=== PATIENT | female | born 1980 | race Hispanic/Latino ===

== ENCOUNTER 2017-08-01 20:09 | Inpatient (IN) | payer MEDICAID ==
[~2017-08-01] VITALS: Ht 162.6 cm; Wt 59.4 kg
[2017-08-01] MEDS: LACTATED RINGERS 1000ML 1,000 ML IV PRN (21:00)
[2017-08-01 21:20] LABS: BILIRUBIN,URINE Negative (NEGATIVE); COLOR,URINE Yellow (YELLOW); GLUCOSE, URINE (UA) Negative (NEGATIVE); KETONES,URINE Negative (NEGATIVE); LEUKOCYTE ESTERASE ,URINE Trace (NEGATIVE); NITRATE,URINE Negative (NEGATIVE); OCCULT BLOOD,URINE Negative (NEGATIVE); PROTEIN,URINE 300 (NEGATIVE)
[2017-08-01 21:27] LABS: AMPHET/METH SCREEN,URINE NEGATIVE (NEGATIVE); BARBITURATE SCREEN, URINE NEGATIVE (NEGATIVE); BENZODIAZEPINES SCREEN,URINE NEGATIVE (NEGATIVE); CANNABINOID SCREEN,URINE NEGATIVE (NEGATIVE); COCAINE SCREEN,URINE NEGATIVE (NEGATIVE); OPIATE SCREEN,URINE POSITIVE (NEGATIVE); PHENCYCLIDINE SCREEN,URINE NEGATIVE (NEGATIVE)
[2017-08-01 21:30] LABS: APPEARANCE,URINE SLIGHTLY CLOUDY (CLEAR)
[2017-08-01 21:35] LABS: BACTERIA,URINE Few /HPF (None Seen); RBC,URINE 0-1 /HPF (0-1)
[2017-08-01 21:37] LABS: HYALINE CASTS, URINE 0-1 /LPF (0-1 /LPF); MUCUS,URINE Few LPF (None Seen); SQUAMOUS EPITHELIAL CELL,UR Few /HPF (0-2)
[2017-08-01 22:06] LABS: HEMATOCRIT 33.1 % (36-48); MEAN CORPUSCULAR HEMOGLOBIN 34.3 pg (27.0-33.0); MEAN CORPUSCULAR HGB CONC 35.9 g/dL (32.0-36.0); MEAN CORPUSCULAR VOLUME 95.4 fL (79-99); PLATELET COUNT (AUTO) 146 K/uL (130-400); RED BLOOD CELL COUNT(AUTO) 3.47 MIL/uL (4.00-5.50); RED CELL DISTRIBUTION WIDTH 13.6 % (11.0-15.5); WHITE BLOOD COUNT (AUTO) 8.7 K/uL (4.8-10.8)
[2017-08-01 22:21] LABS: POTASSIUM 3.9 mmol/L (3.5-5.1)
[2017-08-01 22:22] LABS: INR 0.84 (0.85-1.15); PARTIAL THROMBOPLASTIN TIME 26.5 SEC (26.3-35.5); PROTHROMBIN TIME 8.8 SEC (9.6-11.6)
[2017-08-01 22:25] LABS: ALBUMIN 2.5 g/dL (3.5-5.0); BILIRUBIN,TOTAL 0.2 mg/dL (0.2-1.0); TOTAL PROTEIN, SERUM 6.7 g/dL (6.0-8.3)
[2017-08-01] MEDS ORDERED: ACETAMINOPHEN 325 MG TAB PO ONE (23:00)
[2017-08-01] MEDS: DEXAMETHASONE SOD PHOSPHATE 4 MG/ML 1ML VIAL IM SCH (23:33)
[2017-08-02] MEDS: LACTATED RINGERS 1000ML 1,000 ML IV PRN (00:57)
[2017-08-02] MEDS ORDERED: MEPERIDINE-PF 50 MG/ML SYG IM ONE ×2 (01:45→22:00)
[2017-08-02] MEDS: PROMETHAZINE HCL 25 MG/ML 1ML AMPULE IM SCH (02:05)
[2017-08-02] MEDS: DEXAMETHASONE SOD PHOSPHATE 4 MG/ML 1ML VIAL IM SCH ×3 (06:21→17:43)
[2017-08-02] MEDS ORDERED: CALCIUM GLUCONATE 1 GM/10 ML VIAL IV PRN (11:15)
[2017-08-02] MEDS ORDERED: MAGNESIUM 4GM PREMIX 100ML 100 ML IV SCH (11:15)
[2017-08-02] MEDS ORDERED: PROMETHAZINE HCL 25 MG/ML 1ML AMPULE IM PRN (11:30)
[2017-08-02] MEDS: AMPICILLIN 2GM+NS 100ML 100 ML IV SCH ×2 (11:40→17:43)
[2017-08-02] MEDS: MEPERIDINE-PF 50 MG/ML SYG IM PRN (11:47)
[2017-08-02] MEDS: MAGNESIUM SULFATE 1,000 ML IV PRN (11:51)
[2017-08-02 21:01] LABS: COLLECTION PERIOD,URINE 24 HR; TOTAL VOLUME 24HRS,URINE 950 mL
[2017-08-02 21:19] LABS: TPROTEIN TIMED,URINE 94 mg/dL; TPROTEIN U,24HR CALC 893 mg/24HR (0-165)
[2017-08-02] MEDS ORDERED: PROMETHAZINE HCL 25 MG/ML 1ML AMPULE IM ONE (22:00)
[2017-08-03] MEDS: AMPICILLIN 2GM+NS 100ML 100 ML IV SCH ×2 (00:16→06:18)
[2017-08-03] MEDS: LACTATED RINGERS 1000ML 1,000 ML IV PRN (02:12)
[2017-08-03] MEDS: MAGNESIUM SULFATE 1,000 ML IV PRN ×2 (02:13→16:20)
[2017-08-03 07:29] LABS: HEPATITIS Bs ANTIGEN SCREEN P Negative (Negative)
[2017-08-03] MEDS ORDERED: CALDOLOR 800MG+NS 250ML 250 ML IV ONE (07:34)
[2017-08-03] MEDS ORDERED: CEFAZOLIN SODIUM 1 GM VIAL ONE (07:35)
[2017-08-03] MEDS ORDERED: OXYTOCIN 10 USP UNITS/ML ONE ×2 (07:35→15:53)
[2017-08-03] MEDS ORDERED: FENTANYL CITRATE PF 50 MCG/1 ML 2ML VIAL ONE (14:50)
[2017-08-03] MEDS ORDERED: DURAMORPH PF1 MG/ML 10ML AMP IV ONE (14:57)
[2017-08-03] MEDS ORDERED: LACTATED RINGERS 1000ML 1,000 ML IV SCH (15:56)
[2017-08-03] MEDS ORDERED: OXYTOCIN 10 USP UNITS/ML IV PRN (16:00)
[2017-08-03] MEDS ORDERED: CALCIUM GLUCONATE 1 GM/10 ML VIAL IVP PRN (16:00)
[2017-08-03] MEDS ORDERED: DiphenhydrAMINE HCL 50 MG/ML VIAL ONE (16:10)
[2017-08-03] MEDS ORDERED: EPHEDRINE SULFATE 50 MG/ML AMPULE ONE (18:14)
[2017-08-03] MEDS ORDERED: MEPERIDINE-PF 25 MG/ML SYG ONE (18:14)
[2017-08-03] MEDS: LACTATED RINGERS 1000ML IV SCH ×2 (19:58→20:00)
[2017-08-03] MEDS ORDERED: MORPHINE SULFATE 2 MG/ML 1ML SYG ONE (20:55)
[2017-08-03] MEDS ORDERED: EPHEDRINE SULFATE 50 MG/ML AMPULE IVP ONE (21:15)
[2017-08-03] MEDS ORDERED: DiphenhydrAMINE HCL 50 MG/ML VIAL IVP PRN (21:30)
[2017-08-03] MEDS ORDERED: PROMETHAZINE HCL 25 MG/ML 1ML AMPULE IM PRN (21:30)
[2017-08-03] MEDS ORDERED: ONDANSETRON HCL 4 MG/2 ML VIAL IVP PRN (21:30)
[2017-08-03] MEDS ORDERED: ONDANSETRON HCL MDV 20ML 2 MG/ML VIAL IVP PRN (21:30)
[2017-08-03] MEDS ORDERED: MORPHINE SULFATE 2 MG/ML 1ML SYG IVP PRN (21:30)
[2017-08-03] MEDS ORDERED: NALOXONE HCL 0.4 MG/1 ML ML IVP PRN (21:30)
[2017-08-03] MEDS ORDERED: LACTATED RINGERS 1000ML IV SCH (21:30)
[2017-08-03] MEDS ORDERED: METOCLOPRAMIDE 10 MG/2 ML VIAL IVP PRN (21:30)
[2017-08-03] MEDS ORDERED: EPHEDRINE SULFATE 50 MG/ML AMPULE IVP PRN (21:30)
[2017-08-03] MEDS ORDERED: ONDANSETRON HCL 4 MG/2 ML 8 MG in SODIUM CHLORIDE 0.9% 50 ML IVP NR (21:30)
[2017-08-03] MEDS ORDERED: PHARMACY COMMUNICATION MISC SCH (21:30)
[2017-08-03] MEDS ORDERED: HYDROCODONE/ACETAMINOPHEN 5/325 MG TAB PO PRN (21:30)
[2017-08-03] MEDS ORDERED: MORPHINE SULFATE 2 MG/ML 1ML SYG IVP ONE (21:45)
[2017-08-03 21:53] LABS: HEMATOCRIT 20.6 % (36-48)
[2017-08-03] MEDS ORDERED: EPHEDRINE SULFATE 50 MG/ML AMPULE IM ONE (22:00)
[2017-08-03] MEDS: CALDOLOR 800MG+NS 250ML 250 ML IV SCH (23:32)
[2017-08-04] VITALS (25 sets, daily range): BP systolic 121–160; BP diastolic 87–109
[2017-08-04] MEDS ORDERED: LACTATED RINGERS 1000ML 1,000 ML IV ONE (00:58)
[2017-08-04] MEDS ORDERED: OXYTOCIN 10 USP UNITS/ML ONE (00:58)
[2017-08-04] MEDS ORDERED: OXYTOCIN-LR 20 UNITS/1000 ML 1,000 ML IV PRN (01:11)
[2017-08-04] MEDS: HYDROCODONE/ACETAMINOPHEN 5/325 MG TAB PO PRN (05:07)
[2017-08-04 05:37] LABS: BASOPHILS % (AUTO) 0.2 % (0.0-5.0); EOSINOPHILS % (AUTO) 0.1 % (0.0-8.0); HEMATOCRIT 23.9 % (36-48); MEAN CORPUSCULAR HEMOGLOBIN 32.3 pg (27.0-33.0); MEAN CORPUSCULAR HGB CONC 35.7 g/dL (32.0-36.0); MEAN CORPUSCULAR VOLUME 90.6 fL (79-99); MONOCYTES % (AUTO) 4.7 % (3.0-13.0); PLATELET COUNT (AUTO) 96 K/uL (130-400); RED BLOOD CELL COUNT(AUTO) 2.63 MIL/uL (4.00-5.50); RED CELL DISTRIBUTION WIDTH 15.4 % (11.0-15.5); WHITE BLOOD COUNT (AUTO) 9.4 K/uL (4.8-10.8)
[2017-08-04 05:48] LABS: INR 0.85 (0.85-1.15); PARTIAL THROMBOPLASTIN TIME 24.6 SEC (26.3-35.5)
[2017-08-04 05:53] LABS: ALBUMIN 1.6 g/dL (3.5-5.0); BILIRUBIN,TOTAL 0.4 mg/dL (0.2-1.0); POTASSIUM 4.1 mmol/L (3.5-5.1); TOTAL PROTEIN, SERUM 4.4 g/dL (6.0-8.3); URIC ACID 5.3 mg/dL (2.6-7.2)
[2017-08-04] MEDS ORDERED: PROPOFOL 10 MG/ML 20ML VIAL IV ONE (09:05)
[2017-08-04] MEDS ORDERED: MIDAZOLAM HCL 1 MG/ML 2ML VIAL ONE (09:05)
[2017-08-04] MEDS ORDERED: FENTANYL CITRATE PF 50 MCG/1 ML 2ML VIAL ONE ×2 (09:06→12:21)
[2017-08-04] MEDS ORDERED: LIDOCAINE PF 2% 5ML ABBOJECT ONE (09:07)
[2017-08-04] MEDS ORDERED: CEFAZOLIN SODIUM 1 GM VIAL ONE (09:07)
[2017-08-04] MEDS ORDERED: ROCURONIUM BROMIDE 10MG/1ML 5ML VL ONE (09:07)
[2017-08-04] MEDS ORDERED: EPHEDRINE SULFATE 50 MG/ML AMPULE ONE (09:07)
[2017-08-04] MEDS ORDERED: SUCCINYLCHOLINE 200MG/10ML SYR ONE (09:07)
[2017-08-04] MEDS ORDERED: PHENYLEPHRINE HCL 10 MG/ML 1ML VIAL IV ONE (09:07)
[2017-08-04] MEDS ORDERED: FENTANYL CITRATE PF 50 MCG/1 ML 5ML AMP IV ONE (09:33)
[2017-08-04] MEDS ORDERED: METHYLENE BLUE 10 MG/ML AMP IJ ONE (10:02)
[2017-08-04] MEDS ORDERED: PROMETHAZINE HCL 25 MG/ML 1ML AMPULE IM ONE (11:53)
[2017-08-04] MEDS ORDERED: MEPERIDINE-PF 50 MG/ML SYG ONE (11:54)
[2017-08-04] MEDS: MEPERIDINE-PF 50 MG/ML SYG IM PRN (12:11)
[2017-08-04] MEDS: PROMETHAZINE HCL 25 MG/ML 1ML AMPULE IM SCH ×3 (12:13→22:18)
[2017-08-04 12:30] LABS: HEMATOCRIT 26.1 % (36-48)
[2017-08-04] MEDS ORDERED: DEXTROSE 5 %-0.45 % NACL 1,000 ML IV PRN (12:33)
[2017-08-04] MEDS ORDERED: BISACODYL 10 MG SUPP.RECT RC PRN (12:45)
[2017-08-04] MEDS ORDERED: PROMETHAZINE HCL 25 MG/ML 1ML AMPULE IM PRN (12:45)
[2017-08-04] MEDS ORDERED: SIMETHICONE 80 MG TAB.CHEW PO PRN (12:45)
[2017-08-04] MEDS: DEXTROSE 5 %-0.45 % NACL 1,000 ML IV PRN ×2 (14:15→17:50)
[2017-08-04] MEDS: PROMETHAZINE HCL 25 MG/ML 1ML AMPULE IM PRN (14:26)
[2017-08-04] MEDS: MEPERIDINE-PF 75 MG/ML SYG IM PRN ×3 (14:26→22:19)
[2017-08-04 18:12] LABS: HEMATOCRIT 24.9 % (36-48)
[2017-08-04] MEDS ORDERED: DIPH,PERTUSS(ACELL),TET VAC/PF 0.5 ML VIAL IM ONE (18:15)
[2017-08-04] MEDS ORDERED: MEASLES/MUMPS/RUBELLA VACCINE, LIVE 0.5 ML/VIAL SQ ONE (18:15)
[2017-08-04] MEDS ORDERED: CALDOLOR 800MG+NS 250ML 250 ML IV ONE (22:58)
[2017-08-04] MEDS: CALDOLOR 800MG+NS 250ML 250 ML IV SCH (22:59)
[2017-08-05] VITALS (12 sets, daily range): BP systolic 144–169; BP diastolic 77–103
[2017-08-05] MEDS: PROMETHAZINE HCL 25 MG/ML 1ML AMPULE IM SCH (04:17)
[2017-08-05] MEDS: MEPERIDINE-PF 75 MG/ML SYG IM PRN ×2 (04:18→11:01)
[2017-08-05 06:52] LABS: BASOPHILS % (AUTO) 0.1 % (0.0-5.0); LYMPHOCYTES % (AUTO) 12.7 % (21.0-51.0); MEAN CORPUSCULAR HEMOGLOBIN 33.3 pg (27.0-33.0); MEAN CORPUSCULAR HGB CONC 36.9 g/dL (32.0-36.0); MEAN CORPUSCULAR VOLUME 90.3 fL (79-99); MONOCYTES % (AUTO) 6.8 % (3.0-13.0); NEUTROPHILS % (AUTO) 80.4 % (40.0-77.0); PLATELET COUNT (AUTO) 82 K/uL (130-400); RED BLOOD CELL COUNT(AUTO) 2.06 MIL/uL (4.00-5.50); RED CELL DISTRIBUTION WIDTH 14.4 % (11.0-15.5); WHITE BLOOD COUNT (AUTO) 10.3 K/uL (4.8-10.8)
[2017-08-05 07:04] LABS: HEMATOCRIT 18.6 % (36-48)
[2017-08-05] MEDS: DOCUSATE SODIUM 100 MG CAP PO PRN ×2 (08:20→21:02)
[2017-08-05] MEDS: HYDROCODONE/ACETAMINOPHEN 5/325 MG TAB PO PRN ×4 (08:21→23:03)
[2017-08-05] MEDS ORDERED: LABETALOL HCL 100 MG TABLET ONE (09:43)
[2017-08-05] MEDS ORDERED: LABETALOL HCL 100 MG TABLET PO SCH (09:43)
[2017-08-05] MEDS ORDERED: DIPH,PERTUSS(ACELL),TET VAC/PF 0.5 ML VIAL IM SCH (10:00)
[2017-08-05] MEDS ORDERED: MEASLES/MUMPS/RUBELLA VACCINE, LIVE 0.5 ML/VIAL SQ SCH (10:00)
[2017-08-05] MEDS ORDERED: SODIUM CHLORIDE 0.9% 10 ML VIAL IV PRN (10:30)
[2017-08-05] MEDS: PROMETHAZINE HCL 25 MG/ML 1ML AMPULE IM PRN (11:00)
[2017-08-05] MEDS ORDERED: IBUPROFEN 800 MG TAB PO SCH (12:45)
[2017-08-05] MEDS: DEXAMETHASONE SOD PHOSPHATE 4 MG/ML 1ML VIAL IM SCH ×2 (16:43→23:00)
[2017-08-05] MEDS: AMPICILLIN 2GM+NS 100ML 100 ML IV SCH (16:43)
[2017-08-05] MEDS: IBUPROFEN 800 MG TAB PO SCH ×2 (16:55→23:04)
[2017-08-05] MEDS: SIMETHICONE 80 MG TAB.CHEW PO PRN (21:01)
[2017-08-05] MEDS: LABETALOL HCL 100 MG TABLET PO SCH (21:02)
[2017-08-06] VITALS (13 sets, daily range): BP systolic 130–170; BP diastolic 67–101
[2017-08-06] MEDS: HYDROCODONE/ACETAMINOPHEN 5/325 MG TAB PO PRN ×4 (04:18→23:46)
[2017-08-06 06:24] LABS: BASOPHILS % (AUTO) 0.5 % (0.0-5.0); EOSINOPHILS % (AUTO) 0.3 % (0.0-8.0); LYMPHOCYTES % (AUTO) 20.7 % (21.0-51.0); MEAN CORPUSCULAR HEMOGLOBIN 32.4 pg (27.0-33.0); MEAN CORPUSCULAR VOLUME 89.9 fL (79-99); MONOCYTES % (AUTO) 5.4 % (3.0-13.0); NEUTROPHILS % (AUTO) 73.1 % (40.0-77.0); PLATELET COUNT (AUTO) 83 K/uL (130-400); RED CELL DISTRIBUTION WIDTH 14.5 % (11.0-15.5); WHITE BLOOD COUNT (AUTO) 8.9 K/uL (4.8-10.8)
[2017-08-06 06:42] LABS: HEMATOCRIT 17.1 % (36-48)
[2017-08-06] MEDS: LABETALOL HCL 100 MG TABLET PO SCH ×2 (08:25→21:24)
[2017-08-06] MEDS: DOCUSATE SODIUM 100 MG CAP PO PRN ×2 (08:26→21:23)
[2017-08-06] MEDS: SIMETHICONE 80 MG TAB.CHEW PO PRN ×3 (08:26→21:23)
[2017-08-06] MEDS: IBUPROFEN 800 MG TAB PO SCH ×4 (08:27→22:47)
[2017-08-06] MEDS: DEXAMETHASONE SOD PHOSPHATE 4 MG/ML 1ML VIAL IM SCH (11:00)
[2017-08-06] MEDS: AMPICILLIN 2GM+NS 100ML 100 ML IV SCH ×2 (11:15→17:15)
[2017-08-07 04:01] VITALS: BP 151/84
[2017-08-07] MEDS: IBUPROFEN 800 MG TAB PO SCH ×2 (06:15→15:09)
[2017-08-07 06:59] LABS: HEMATOCRIT 25.7 % (36-48)
[2017-08-07] MEDS: HYDROCODONE/ACETAMINOPHEN 5/325 MG TAB PO PRN (07:05)
[2017-08-07 07:20] VITALS: BP 173/96
[2017-08-07] MEDS: SIMETHICONE 80 MG TAB.CHEW PO PRN ×2 (08:41→15:08)
[2017-08-07] MEDS: DOCUSATE SODIUM 100 MG CAP PO PRN (08:41)
[2017-08-07] MEDS: LABETALOL HCL 100 MG TABLET PO SCH (08:41)
[2017-08-07] MEDS: AMPICILLIN 2GM+NS 100ML 100 ML IV SCH (11:15)
[2017-08-07 11:16] VITALS: BP 137/92
== END 2017-08-07 15:15 | disposition home or self-care (01) | DRG 540 ==
LOC: EDH 20:09 → OBSVTOIN 20:10 → LDH 20:10 → WSH 08-04 17:20
PROC: 10D00Z1 Extraction of Products of Conception, Low, Open Approach (ICD-10-PCS; principal; 2017-08-03 08:30)
PROC: 30233N1 Transfusion of Nonautologous Red Blood Cells into Peripheral Vein, Percutaneous Approach (ICD-10-PCS; 2017-08-04)
PROC: 3E0234Z Introduction of Serum, Toxoid and Vaccine into Muscle, Percutaneous Approach (ICD-10-PCS; 2017-08-04)
PROC: 3E0134Z Introduction of Serum, Toxoid and Vaccine into Subcutaneous Tissue, Percutaneous Approach (ICD-10-PCS; 2017-08-04)
PROC: 0UT90ZZ Resection of Uterus, Open Approach (ICD-10-PCS; 2017-08-04 09:09)
DX: O34.211 Maternal care for low transverse scar from previous cesarean delivery (principal); N13.30 Unspecified hydronephrosis; F17.200 Nicotine dependence, unspecified, uncomplicated; O13.4 Gestational [pregnancy-induced] hypertension without significant proteinuria, complicating childbirth; O99.334 Smoking (tobacco) complicating childbirth; O99.89 Other specified diseases and conditions complicating pregnancy, childbirth and the puerperium; O99.344 Other mental disorders complicating childbirth; F41.9 Anxiety disorder, unspecified; O14.04 Mild to moderate pre-eclampsia, complicating childbirth; O90.81 Anemia of the puerperium; D64.9 Anemia, unspecified; O09.33 Supervision of pregnancy with insufficient antenatal care, third trimester; Z37.0 Single live birth; Z3A.39 39 weeks gestation of pregnancy; Z87.442 Personal history of urinary calculi; Z23 Encounter for immunization; Z82.49 Family history of ischemic heart disease and other diseases of the circulatory system
CPT/HCPCS: 36415; 36430; 59510; 76700; 76805; 80053; 80305; 81001; 82575; 83735; 84156; 84550; 85014; 85018; 85025; 85027; 85378; 85384; 85610; 85730; 86592; 86701; 86850; 86900; 86901; 86922; 87340; 87390; 88305; 88307; 90707; 90715; 96360; 96361; 96372; A4606; J0290; J0330; J0690; J1100; J1200; J1741; J2001; J2175; J2250; J2274; J2370; J2550; J2590; J2704; J3010; J3475; J3490; J7030; J7120; P9016; Q9968

== ENCOUNTER 2023-04-17 06:06 | Emergency (ER) | payer MEDICAID, OTHER ==
[~2023-04-17] VITALS: Ht 167.6 cm; Wt 59.9 kg
[2023-04-17 06:33] LABS: BASOPHILS # (AUTO) 0.04 K/uL (0.00-0.20); BASOPHILS % (AUTO) 0.3 % (0.0-5.0); EOSINOPHILS # (AUTO) 0.11 K/uL (0.00-0.70); EOSINOPHILS % (AUTO) 0.7 % (0.0-8.0); IMMATURE GRANULOCYTE ABSOLUTE 0.06 K/uL (0-1); LYMPHOCYTES # (AUTO) 1.9 K/uL (1.0-4.8); LYMPHOCYTES % (AUTO) 12.4 % (21.0-51.0); MEAN CORPUSCULAR HEMOGLOBIN 31.5 pg (27.0-33.0); MEAN CORPUSCULAR HGB CONC 33.2 g/dL (32.0-36.0); MEAN CORPUSCULAR VOLUME 94.9 fL (79-99); MONOCYTES % (AUTO) 6.1 % (3.0-13.0); NEUTROPHILS # (AUTO) 12.4 K/uL (1.8-7.7); NEUTROPHILS % (AUTO) 80.1 % (40.0-77.0); PLATELET COUNT (AUTO) 171 K/uL (130-400); RED BLOOD CELL COUNT(AUTO) 4.32 MIL/uL (4.00-5.50); RED CELL DISTRIBUTION WIDTH 13.8 % (11.0-15.5); WHITE BLOOD COUNT (AUTO) 15.5 K/uL (4.8-10.8)
[2023-04-17 07:07] LABS: ALBUMIN 3.9 g/dL (3.5-5.0); BILIRUBIN,TOTAL 0.2 mg/dL (0.2-1.0); CREATININE 0.9 mg/dL (0.5-1.5); POTASSIUM 4.2 mmol/L (3.5-5.1); TOTAL PROTEIN, SERUM 7.1 g/dL (6.0-8.3)
[2023-04-17] MEDS: 0.9%NACL 1000ML 1,000 ML IV ONE (07:50)
[2023-04-17] MEDS: FAMOTIDINE 20MG VIAL IV ONE (07:52)
[2023-04-17] MEDS: METOCLOPRAMIDE 10 MG/2 ML VIAL IVP ONE (07:53)
[2023-04-17] MEDS: KETOROLAC 30MG VIAL (30MG/ML) IVP ONE (07:54)
[2023-04-17 11:13] LABS: APPEARANCE,URINE CLEAR (CLEAR); BILIRUBIN,URINE NEGATIVE (NEGATIVE); COLOR,URINE LIGHT-YELLOW (YELLOW); GLUCOSE, URINE (UA) NEGATIVE (NEGATIVE); KETONES,URINE NEGATIVE (NEGATIVE); LEUKOCYTE ESTERASE ,URINE NEGATIVE Leu/uL (NEGATIVE); NITRATE,URINE NEGATIVE (NEGATIVE); OCCULT BLOOD,URINE NEGATIVE (NEGATIVE); PROTEIN,URINE NEGATIVE (NEGATIVE); UROBILINOGEN,URINE 0.2 mg/dL (0.2-1.0)
[2023-04-17 11:25] LABS: ADD UA MICROSCOPIC NO
[2023-04-17] MEDS ORDERED: KETO10 PO (11:43)
[2023-04-17] MEDS ORDERED: TAMS-1 PO (11:43)
[2023-04-17] MEDS ORDERED: METO-296 PO (11:43)
[2023-04-17] MEDS ORDERED: FAMO-136 PO (11:43)
[2023-04-17] MEDS: TAMSULOSIN HCL 0.4 MG CAP.ER.24H PO ONE (12:40)
[2023-04-17 12:52] VITALS: BP 145/82; PULSE 98; RESP 18; O2SAT 99
== END 2023-04-17 12:53 | disposition home or self-care (01) ==
LOC: EDH 06:06
DX: N20.0 Calculus of kidney (principal); I10 Essential (primary) hypertension; Z90.710 Acquired absence of both cervix and uterus; Z98.890 Other specified postprocedural states; Z88.5 Allergy status to narcotic agent; Z88.8 Allergy status to other drugs, medicaments and biological substances
CPT/HCPCS: 99285; 74176; 96374; 96361; 96375; 80053; 83690; 85025; 81003; 36415; J3490; J7030; J1885; J2765

== ENCOUNTER 2023-10-06 04:00 | Inpatient (IN) | payer OTHER ==
[2023-10-06] VITALS (31 sets, daily range): BP systolic 96–162; BP diastolic 62–98; PULSE 80–112; RESP 16–22; O2SAT 97
[~2023-10-06] VITALS: Ht 167.6 cm; Wt 59.6 kg
[~2023-10-06 04:00] MED LIST: FAMO-136 PO; KETO10 PO; METO-296 PO; TAMS-1 PO
[2023-10-06] MEDS: HYDROMORPHONE 1 MG INJ IVP ONE (04:38)
[2023-10-06] MEDS: ONDANSETRON 4MG INJ IVP ONE (04:38)
[2023-10-06] MEDS: LACTATED RINGERS 1000ML 1,000 ML IV ONE (04:39)
[2023-10-06 04:45] LABS: BASOPHILS # (AUTO) 0.02 K/uL (0.00-0.20); BASOPHILS % (AUTO) 0.2 % (0.0-5.0); EOSINOPHILS # (AUTO) 0.03 K/uL (0.00-0.70); EOSINOPHILS % (AUTO) 0.2 % (0.0-8.0); HEMATOCRIT 37.9 % (36-48); IMMATURE GRANULOCYTE ABSOLUTE 0.05 K/uL (0-1); LYMPHOCYTES # (AUTO) 1.2 K/uL (1.0-4.8); LYMPHOCYTES % (AUTO) 9.3 % (21.0-51.0); MEAN CORPUSCULAR HEMOGLOBIN 31.3 pg (27.0-33.0); MEAN CORPUSCULAR HGB CONC 33.8 g/dL (32.0-36.0); MEAN CORPUSCULAR VOLUME 92.7 fL (79-99); MONOCYTES # (AUTO) 0.5 K/uL (0.1-1.0); MONOCYTES % (AUTO) 4.1 % (3.0-13.0); NEUTROPHILS # (AUTO) 11.2 K/uL (1.8-7.7); NEUTROPHILS % (AUTO) 85.8 % (40.0-77.0); PLATELET COUNT (AUTO) 189 K/uL (130-400); RED BLOOD CELL COUNT(AUTO) 4.09 MIL/uL (4.00-5.50); RED CELL DISTRIBUTION WIDTH 13.5 % (11.0-15.5)
[2023-10-06 04:55] LABS: CREATININE 0.9 mg/dL (0.5-1.0); POTASSIUM 4.2 mmol/L (3.5-5.1)
[2023-10-06 04:59] LABS: ALBUMIN 3.6 g/dL (3.5-5.0); BILIRUBIN,TOTAL 0.3 mg/dL (0.2-1.0); TOTAL PROTEIN, SERUM 6.5 g/dL (6.0-8.3)
[2023-10-06] MEDS ORDERED: IOHEXOL-350 75 ML VIAL IV ONE (05:09)
[2023-10-06] MEDS: ZOSYN 3.375GM +NS 50ML IV ONE (05:17)
[2023-10-06] MEDS ORDERED: NITROGLYCERIN 0.4 MG SL TAB SL PRN (06:30)
[2023-10-06] MEDS ORDERED: MAG/ALUM/SIMETH 30 ML UDCUP PO PRN (06:30)
[2023-10-06] MEDS ORDERED: FAMOTIDINE 20MG VIAL IV PRN (06:30)
[2023-10-06] MEDS ORDERED: GUAIFENESIN-DM 200/20 MG 10 ML PO PRN (06:30)
[2023-10-06] MEDS ORDERED: DIPHENHYDRAMINE HCL 25 MG CAPSULE PO PRN (06:30)
[2023-10-06] MEDS ORDERED: POTASSIUM CHLORIDE 20MEQ/100ML 100 ML IV PRN (06:30)
[2023-10-06] MEDS ORDERED: MAGNESIUM 2GM PREMIX 50ML 50 ML IV PRN (06:30)
[2023-10-06] MEDS ORDERED: POTASSIUM CHLORIDE 10% ELIXIR 20 MEQ/15 ML UDCUP PO PRN (06:30)
[2023-10-06] MEDS ORDERED: ACETAMINOPHEN 325 MG TAB PO PRN ×2 (06:30)
[2023-10-06] MEDS ORDERED: KCL 20 MEQ ERTAB PO PRN (06:30)
[2023-10-06] MEDS ORDERED: ONDANSETRON 4MG INJ IV PRN (06:30)
[2023-10-06] MEDS ORDERED: DiphenhydrAMINE HCL 50 MG/ML VIAL IV PRN (06:30)
[2023-10-06] MEDS: LACTATED RINGERS 1000ML 1,000 ML IV SCH (06:33)
[2023-10-06] MEDS: HYDROMORPHONE 1 MG INJ IV PRN (06:54)
[2023-10-06 07:15] LABS: ADD UA MICROSCOPIC YES; APPEARANCE,URINE CLEAR (CLEAR); BILIRUBIN,URINE NEGATIVE (NEGATIVE); COLOR,URINE LIGHT-YELLOW (YELLOW); GLUCOSE, URINE (UA) NEGATIVE (NEGATIVE); HCG,QUALITATIVE URINE NEGATIVE (NEGATIVE); KETONES,URINE NEGATIVE (NEGATIVE); LEUKOCYTE ESTERASE ,URINE 25 Leu/uL (NEGATIVE); NITRATE,URINE 2+ (NEGATIVE); OCCULT BLOOD,URINE NEGATIVE (NEGATIVE); PH,URINE 6.5 (5.0-8.0); PROTEIN,URINE 10 mg/dL (NEGATIVE); UROBILINOGEN,URINE 0.2 mg/dL (0.2-1.0)
[2023-10-06 07:21] LABS: BACTERIA,URINE FEW /HPF (None Seen); MUCUS,URINE RARE LPF (None Seen); SQUAMOUS EPITHELIAL CELL,UR RARE /HPF (0-2)
[2023-10-06] MEDS: 0.9%NACL 1000ML 1,000 ML IV SCH (07:33)
[2023-10-06] MEDS: ENOXAPARIN SODIUM 30 MG/0.3 ML SQ SCH (09:00)
[2023-10-06] MEDS: FAMOTIDINE 20MG TAB PO SCH (09:00)
[2023-10-06] MEDS: HYDROMORPHONE 0.5 MG SYG (0.5MG/0.5ML) IVP STA (10:00)
[2023-10-06] MEDS: HYDROMORPHONE 1 MG INJ IVP STA (10:11)
[2023-10-06] MEDS ORDERED: BUPIVACAINE/PF 0.5% 30ML VIAL ONE (11:17)
[2023-10-06] MEDS: BUPIVACAINE/PF 0.5% 30ML VIAL INJ ONE (12:23)
[2023-10-06] MEDS: MEPERIDINE-PF 25 MG/ML SYG ONE ×3 (12:44→15:13)
[2023-10-06] MEDS: ZOSYN 3.375GM+NS 50ML 50 ML IV SCH (13:00)
[2023-10-06] MEDS ORDERED: FENTANYL CITRATE PF 50 MCG/1 ML 2ML VIAL ONE ×2 (13:22→14:18)
[2023-10-06] MEDS: ZOSYN 3.375GM+NS 50ML 50 ML ONE (13:22)
[2023-10-06] MEDS ORDERED: MIDAZOLAM HCL 1 MG/ML 2ML VIAL ONE (13:22)
[2023-10-06] MEDS ORDERED: LIDOCAINE PF 100MG/5ML (2%) SYRINGE 5ML ONE (13:37)
[2023-10-06] MEDS ORDERED: ONDANSETRON 4MG INJ ONE ×2 (13:37→14:04)
[2023-10-06] MEDS ORDERED: PROPOFOL 10 MG/ML 20ML VIAL IV ONE (13:39)
[2023-10-06] MEDS ORDERED: ROCURONIUM BROMIDE 10MG/1ML 5ML VL ONE (13:40)
[2023-10-06] MEDS ORDERED: SUCCINYLCHOLINE CHLORIDE 20 MG/ML 10 ML VIAL ONE (13:40)
[2023-10-06] MEDS: ACETAMINOPHEN 1,000 MG/100 ML VIAL IV ONE (14:06)
[2023-10-06] MEDS ORDERED: NEOSTIGMINE METHYLSULFATE 1MG/ML IV ONE (14:25)
[2023-10-06] MEDS ORDERED: GLYCOPYRROLATE 0.2 MG/ML 5 ML VIAL ONE (14:25)
[2023-10-06] MEDS: FENTANYL CITRATE PF 50 MCG/1 ML 2ML VIAL ONE (15:03)
[2023-10-06] MEDS: TAMSULOSIN HCL 0.4 MG CAP.ER.24H PO SCH (17:03)
[2023-10-06] MEDS: HYDROMORPHONE 0.5 MG SYG (0.5MG/0.5ML) IV PRN (18:57)
[2023-10-06] MEDS: SIMETHICONE 80 MG TAB.CHEW ONE (23:36)
[2023-10-06] MEDS: SIMETHICONE 80 MG TAB.CHEW PO SCH (23:36)
[2023-10-07] VITALS (26 sets, daily range): BP systolic 100–136; BP diastolic 57–107; PULSE 97–134; RESP 15–30; O2SAT 97
[2023-10-07] MEDS: KETOROLAC 15MG/ML VIAL (15MG/ML) ONE (02:55)
[2023-10-07] MEDS: KETOROLAC 15MG/ML VIAL (15MG/ML) IV ONE (03:19)
[2023-10-07 05:39] LABS: BASOPHILS # (AUTO) 0.02 K/uL (0.00-0.20); BASOPHILS % (AUTO) 0.1 % (0.0-5.0); EOSINOPHILS # (AUTO) 0.01 K/uL (0.00-0.70); EOSINOPHILS % (AUTO) 0.1 % (0.0-8.0); HEMATOCRIT 27.8 % (36-48); IMMATURE GRANULOCYTE ABSOLUTE 0.08 K/uL (0-1); LYMPHOCYTES # (AUTO) 1.1 K/uL (1.0-4.8); LYMPHOCYTES % (AUTO) 6.3 % (21.0-51.0); MEAN CORPUSCULAR HEMOGLOBIN 30.7 pg (27.0-33.0); MEAN CORPUSCULAR VOLUME 95.9 fL (79-99); MONOCYTES # (AUTO) 0.5 K/uL (0.1-1.0); MONOCYTES % (AUTO) 3.2 % (3.0-13.0); NEUTROPHILS # (AUTO) 14.9 K/uL (1.8-7.7); NEUTROPHILS % (AUTO) 89.8 % (40.0-77.0); PLATELET COUNT (AUTO) 172 K/uL (130-400); RED CELL DISTRIBUTION WIDTH 13.9 % (11.0-15.5); WHITE BLOOD COUNT (AUTO) 16.6 K/uL (4.8-10.8)
[2023-10-07 05:55] LABS: CREATININE 1.2 mg/dL (0.5-1.0); MAGNESIUM 1.1 mg/dL (1.80-2.40); PHOSPHORUS 3.7 mg/dL (2.5-4.9); POTASSIUM 3.7 mmol/L (3.5-5.1)
[2023-10-07] MEDS ORDERED: TRAM50TA4 PO (11:44)
[2023-10-07 12:04] LABS: HEMATOCRIT 25.6 % (36-48)
[2023-10-07] MEDS ORDERED: SUCCINYLCHOLINE CHLORIDE 20 MG/ML 10 ML VIAL ONE (13:19)
[2023-10-07] MEDS ORDERED: PROPOFOL 10 MG/ML 20ML VIAL IV ONE (13:19)
[2023-10-07] MEDS ORDERED: MIDAZOLAM HCL 1 MG/ML 2ML VIAL ONE (13:19)
[2023-10-07] MEDS ORDERED: ROCURONIUM BROMIDE 10MG/1ML 5ML VL ONE (13:19)
[2023-10-07] MEDS ORDERED: LIDOCAINE PF 100MG/5ML (2%) SYRINGE 5ML ONE (13:19)
[2023-10-07] MEDS ORDERED: FENTANYL CITRATE PF 50 MCG/1 ML 2ML VIAL ONE (13:20)
[2023-10-07] MEDS: BUPIVACAINE/PF 0.5% 30ML VIAL INJ ONE (13:40)
[2023-10-07] MEDS ORDERED: BUPIVACAINE/PF 0.5% 30ML VIAL ONE (13:40)
[2023-10-07] MEDS ORDERED: EPHEDRINE SULFATE 50 MG/ML AMPULE ONE (14:04)
[2023-10-07] MEDS: ALBUMIN (HUMAN) 5% 250 ML IV ONE (14:10)
[2023-10-07] MEDS: SUGAMMADEX SODIUM 200 MG/2 ML VIAL IV ONE (14:40)
[2023-10-07] MEDS: MEPERIDINE-PF 25 MG/ML SYG ONE (14:54)
[2023-10-07] MEDS: MEPERIDINE-PF 25 MG/ML SYG IVP ONE (15:04)
[2023-10-07] MEDS: LACTULOSE 20 GM/30 ML UDCUP PO PRN (23:40)
[2023-10-08] VITALS (33 sets, daily range): BP systolic 110–165; BP diastolic 69–105; PULSE 71–129; RESP 15–20; O2SAT 96–97
[2023-10-08] MEDS: HYDROCODONE/ACETAMINOPHEN 5/325 MG TAB PO PRN (01:15)
[2023-10-08 04:43] LABS: BASOPHILS # (AUTO) 0.02 K/uL (0.00-0.20); BASOPHILS % (AUTO) 0.2 % (0.0-5.0); EOSINOPHILS # (AUTO) 0.01 K/uL (0.00-0.70); EOSINOPHILS % (AUTO) 0.1 % (0.0-8.0); IMMATURE GRANULOCYTE ABSOLUTE 0.07 K/uL (0-1); LYMPHOCYTES # (AUTO) 1.2 K/uL (1.0-4.8); LYMPHOCYTES % (AUTO) 10.4 % (21.0-51.0); MEAN CORPUSCULAR HEMOGLOBIN 31.2 pg (27.0-33.0); MEAN CORPUSCULAR VOLUME 94.6 fL (79-99); MONOCYTES # (AUTO) 0.3 K/uL (0.1-1.0); MONOCYTES % (AUTO) 2.7 % (3.0-13.0); NEUTROPHILS # (AUTO) 9.5 K/uL (1.8-7.7); PLATELET COUNT (AUTO) 111 K/uL (130-400); RED BLOOD CELL COUNT(AUTO) 2.02 MIL/uL (4.00-5.50); RED CELL DISTRIBUTION WIDTH 13.8 % (11.0-15.5); WHITE BLOOD COUNT (AUTO) 11.1 K/uL (4.8-10.8)
[2023-10-08 05:07] LABS: CREATININE 0.9 mg/dL (0.5-1.0); POTASSIUM 3.6 mmol/L (3.5-5.1)
[2023-10-08 05:54] LABS: HEMATOCRIT 19.1 % (36-48)
[2023-10-08] MEDS ORDERED: SUCCINYLCHOLINE CHLORIDE 20 MG/ML 10 ML VIAL ONE (08:10)
[2023-10-08] MEDS ORDERED: PROPOFOL 10 MG/ML 20ML VIAL IV ONE (08:10)
[2023-10-08] MEDS ORDERED: FENTANYL CITRATE PF 50 MCG/1 ML 2ML VIAL ONE ×3 (08:10→09:39)
[2023-10-08] MEDS ORDERED: ROCURONIUM BROMIDE 10MG/1ML 5ML VL ONE (08:10)
[2023-10-08] MEDS ORDERED: ROPIVACAINE 0.5% 5MG/ML 30ML ONE (08:26)
[2023-10-08] MEDS ORDERED: LIDOCAINE 2%-EPI 1:200,000 20 ML VIAL IJ ONE (08:26)
[2023-10-08] MEDS ORDERED: MIDAZOLAM HCL 1 MG/ML 2ML VIAL ONE (08:27)
[2023-10-08] MEDS ORDERED: KETAMINE 50MG/ML SYRINGE 50 MG/ML DISP.SYRIN ONE (08:27)
[2023-10-08] MEDS ORDERED: ONDANSETRON 4MG INJ ONE (09:12)
[2023-10-08 09:31] LABS: ABG HCO3 22.5 mmol/L (21.0-28.0); ABG OXYGEN SATURATION 99.1 % (95.0-99.0); ABG PCO2 32 mmHg (32-45); ABG PH 7.463 (7.35-7.450); CARBON MONOXIDE 0.3; HHb 0.9; PO2, ARTERIAL BG 358.3 mmHg (83.0-108.0); VENT MODE, BG ANESTHESIA VENT (ROOM AIR)
[2023-10-08] MEDS ORDERED: DEXAMETHASONE SOD PHOSPHATE 4 MG/ML 1ML VIAL ONE (09:34)
[2023-10-08] MEDS ORDERED: METOCLOPRAMIDE 10 MG/2 ML VIAL ONE (09:34)
[2023-10-08 09:35] LABS: INR 1.06 (0.85-1.15); PROTHROMBIN TIME 11.4 SEC (9.6-11.6)
[2023-10-08 09:36] LABS: PARTIAL THROMBOPLASTIN TIME 31.9 SEC (26.3-35.5)
[2023-10-08] MEDS: 0.9%NACL 1000ML 1,000 ML IV ONE (10:07)
[2023-10-08] MEDS: LABETALOL 20MG VIAL ONE (10:38)
[2023-10-08] MEDS: TRANEXAMIC ACID 1000MG/10ML ONE (12:52)
[2023-10-08] MEDS: SUGAMMADEX SODIUM 200 MG/2 ML VIAL IV ONE (12:53)
[2023-10-08 13:06] LABS: HEMATOCRIT 25.6 % (36-48)
[2023-10-08 17:09] LABS: HEMATOCRIT 25.2 % (36-48)
[2023-10-08] MEDS: SIMETHICONE 80 MG TAB.CHEW PO SCH (17:33)
[2023-10-08 20:55] LABS: HEMATOCRIT 25.8 % (36-48)
[2023-10-09] VITALS (7 sets, daily range): BP systolic 148–165; BP diastolic 90–99; PULSE 71–80; RESP 16–20; O2SAT 96
[2023-10-09 05:55] LABS: CREATININE 0.7 mg/dL (0.5-1.0); POTASSIUM 4.1 mmol/L (3.5-5.1)
[2023-10-09 06:14] LABS: BASOPHILS # (AUTO) 0.01 K/uL (0.00-0.20); BASOPHILS % (AUTO) 0.1 % (0.0-5.0); EOSINOPHILS # (AUTO) 0.01 K/uL (0.00-0.70); EOSINOPHILS % (AUTO) 0.1 % (0.0-8.0); HEMATOCRIT 25.7 % (36-48); IMMATURE GRANULOCYTE ABSOLUTE 0.12 K/uL (0-1); LYMPHOCYTES # (AUTO) 0.9 K/uL (1.0-4.8); LYMPHOCYTES % (AUTO) 5.9 % (21.0-51.0); MEAN CORPUSCULAR HEMOGLOBIN 31.5 pg (27.0-33.0); MEAN CORPUSCULAR HGB CONC 34.2 g/dL (32.0-36.0); MEAN CORPUSCULAR VOLUME 92.1 fL (79-99); MONOCYTES # (AUTO) 0.7 K/uL (0.1-1.0); MONOCYTES % (AUTO) 4.8 % (3.0-13.0); NEUTROPHILS # (AUTO) 12.8 K/uL (1.8-7.7); NEUTROPHILS % (AUTO) 88.3 % (40.0-77.0); PLATELET COUNT (AUTO) 121 K/uL (130-400); RED BLOOD CELL COUNT(AUTO) 2.79 MIL/uL (4.00-5.50); RED CELL DISTRIBUTION WIDTH 14.6 % (11.0-15.5); WHITE BLOOD COUNT (AUTO) 14.5 K/uL (4.8-10.8)
[2023-10-09] MEDS: HYDROCODONE/ACETAMINOPHEN 5/325 MG TAB PO PRN (15:26)
[2023-10-09 17:14] LABS: HEMATOCRIT 26.5 % (36-48)
== END 2023-10-09 22:34 | disposition left against medical advice (07) | DRG 397 ==
LOC: EDH 04:00 → EDHIP 04:01 → 3DH 08:30
PROVIDERS: ADMIT Internal Medicine; ATTEND Internal Medicine
PROC: 0WJG0ZZ Inspection of Peritoneal Cavity, Open Approach (ICD-10-PCS; 2023-10-06)
PROC: 0DTJ4ZZ Resection of Appendix, Percutaneous Endoscopic Approach (ICD-10-PCS; principal; 2023-10-06 12:50)
PROC: 0W3P4ZZ Control Bleeding in Gastrointestinal Tract, Percutaneous Endoscopic Approach (ICD-10-PCS; 2023-10-07)
PROC: 30233N1 Transfusion of Nonautologous Red Blood Cells into Peripheral Vein, Percutaneous Approach (ICD-10-PCS; 2023-10-08)
PROC: 30233K0 Transfusion of Autologous Frozen Plasma into Peripheral Vein, Percutaneous Approach (ICD-10-PCS; 2023-10-08)
DX: K35.80 Unspecified acute appendicitis (principal); K66.1 Hemoperitoneum; N13.2 Hydronephrosis with renal and ureteral calculous obstruction; I10 Essential (primary) hypertension; D50.9 Iron deficiency anemia, unspecified; K21.9 Gastro-esophageal reflux disease without esophagitis; I95.9 Hypotension, unspecified; Z53.29 Procedure and treatment not carried out because of patient's decision for other reasons; F17.200 Nicotine dependence, unspecified, uncomplicated; Z87.442 Personal history of urinary calculi; Z88.8 Allergy status to other drugs, medicaments and biological substances; Z90.710 Acquired absence of both cervix and uterus
CPT/HCPCS: 36415; 36430; 36600; 74177; 80048; 80053; 81001; 81025; 82150; 82435; 82550; 82803; 82947; 83540; 83550; 83605; 83690; 83735; 84100; 84132; 84295; 84484; 85014; 85018; 85025; 85378; 85384; 85610; 85730; 86850; 86900; 86901; 86923; 86927; 87086; A4344; G0378; J0330; J1100; J1170; J1650; J1885; J2001; J2175; J2250; J2405; J2543; J2704; J2710; J2765; J2795; J3010; J3490; J7030; J7120; P9016; P9017; P9045; Q9967; A4215; A4216; A4221; A4222; A4223; A4600; A4649; A4930; A6206; A6219; C1769; G8980-CI; G8983-CI; J0665

== ENCOUNTER 2023-10-19 02:53 | Inpatient (IN) | payer SELFPAY ==
[~2023-10-19] VITALS: Ht 167.6 cm; Wt 59.0 kg
[2023-10-19] VITALS (41 sets, daily range): BP systolic 115–198; BP diastolic 54–107; PULSE 79–141; RESP 12–23; O2SAT 98–100
[~2023-10-19 02:53] MED LIST changes: +TRAM50TA4 PO
[2023-10-19] MEDS: ONDANSETRON 4MG INJ IVP ONE (03:51)
[2023-10-19] MEDS: MORPHINE 2 MG SYG IVP ONE ×2 (03:51→05:45)
[2023-10-19 03:56] LABS: BASOPHILS # (AUTO) 0.07 K/uL (0.00-0.20); BASOPHILS % (AUTO) 0.3 % (0.0-5.0); EOSINOPHILS # (AUTO) 0.01 K/uL (0.00-0.70); HEMATOCRIT 32.3 % (36-48); IMMATURE GRANULOCYTE ABSOLUTE 0.26 K/uL (0-1); LYMPHOCYTES # (AUTO) 1.6 K/uL (1.0-4.8); LYMPHOCYTES % (AUTO) 7.5 % (21.0-51.0); MEAN CORPUSCULAR HEMOGLOBIN 30.5 pg (27.0-33.0); MEAN CORPUSCULAR HGB CONC 32.8 g/dL (32.0-36.0); MEAN CORPUSCULAR VOLUME 92.8 fL (79-99); MONOCYTES % (AUTO) 4.8 % (3.0-13.0); NEUTROPHILS # (AUTO) 18.3 K/uL (1.8-7.7); NEUTROPHILS % (AUTO) 86.2 % (40.0-77.0); PLATELET COUNT (AUTO) 524 K/uL (130-400); RED BLOOD CELL COUNT(AUTO) 3.48 MIL/uL (4.00-5.50); RED CELL DISTRIBUTION WIDTH 14.7 % (11.0-15.5); WHITE BLOOD COUNT (AUTO) 21.3 K/uL (4.8-10.8)
[2023-10-19 04:07] LABS: CREATININE 1.3 mg/dL (0.5-1.0); INR 1.19 (0.85-1.15); POTASSIUM 3.2 mmol/L (3.5-5.1); PROTHROMBIN TIME 12.7 SEC (9.6-11.6)
[2023-10-19] MEDS ORDERED: IOHEXOL-350 75 ML VIAL IV ONE (04:07)
[2023-10-19 04:08] LABS: PARTIAL THROMBOPLASTIN TIME 31.6 SEC (26.3-35.5)
[2023-10-19 04:11] LABS: ALBUMIN 2.7 g/dL (3.5-5.0); BILIRUBIN,TOTAL 0.6 mg/dL (0.2-1.0); TOTAL PROTEIN, SERUM 7.7 g/dL (6.0-8.3)
[2023-10-19] MEDS: METRONIDAZOLE 500MG/100ML BAG IV STA (05:36)
[2023-10-19] MEDS: cefTRIAXone 1G VIAL IVPB ONE (05:36)
[2023-10-19 05:40] LABS: APPEARANCE,URINE CLEAR (CLEAR); BILIRUBIN,URINE NEGATIVE (NEGATIVE); COLOR,URINE YELLOW (YELLOW); GLUCOSE, URINE (UA) NEGATIVE (NEGATIVE); KETONES,URINE NEGATIVE (NEGATIVE); LEUKOCYTE ESTERASE ,URINE 25 Leu/uL (NEGATIVE); NITRATE,URINE NEGATIVE (NEGATIVE); OCCULT BLOOD,URINE NEGATIVE (NEGATIVE); PROTEIN,URINE 100 mg/dL (NEGATIVE)
[2023-10-19 05:42] LABS: HCG,QUALITATIVE URINE NEGATIVE (NEGATIVE)
[2023-10-19] MEDS: 0.9%NACL 1000ML 1,000 ML IV ONE (05:44)
[2023-10-19 05:52] LABS: AMPHET/METH SCREEN,URINE NEGATIVE (NEGATIVE); BARBITURATE SCREEN, URINE NEGATIVE (NEGATIVE); BENZODIAZEPINES SCREEN,URINE NEGATIVE (NEGATIVE); CANNABINOID SCREEN,URINE NEGATIVE (NEGATIVE); COCAINE SCREEN,URINE POSITIVE (NEGATIVE); OPIATE SCREEN,URINE POSITIVE (NEGATIVE); PHENCYCLIDINE SCREEN,URINE NEGATIVE (NEGATIVE)
[2023-10-19 05:54] LABS: MUCUS,URINE RARE LPF (None Seen); SQUAMOUS EPITHELIAL CELL,UR FEW /HPF (0-2)
[2023-10-19] MEDS ORDERED: acetaMINOPHEN 325 MG TAB PO PRN (07:00)
[2023-10-19] MEDS: ZOSYN 3.375GM +NS 50ML IVPB SCH (07:20)
[2023-10-19] MEDS: MORPHINE 2 MG SYG IVP PRN (07:20)
[2023-10-19] MEDS: LACTATED RINGERS 1000ML 1,000 ML IV SCH (07:21)
[2023-10-19] MEDS: 0.9%NACL 50ML IV SCH (07:21)
[2023-10-19] MEDS: ONDANSETRON 4MG INJ IVP PRN (07:23)
[2023-10-19] MEDS ORDERED: POTASSIUM CHLORIDE 20MEQ/100ML 100 ML IV PRN (09:00)
[2023-10-19] MEDS: FAMOTIDINE 20MG VIAL IV SCH (09:11)
[2023-10-19] MEDS: MORPHINE 4 MG SYG IM PRN (11:18)
[2023-10-19] MEDS ORDERED: FENTANYL CITRATE PF 50 MCG/1 ML 2ML VIAL ONE ×2 (12:39→14:28)
[2023-10-19] MEDS ORDERED: MIDAZOLAM HCL 1 MG/ML 2ML VIAL ONE (13:07)
[2023-10-19] MEDS ORDERED: KETAMINE 50MG/ML SYRINGE 50 MG/ML DISP.SYRIN ONE (14:26)
[2023-10-19] MEDS ORDERED: LIDOCAINE PF 100MG/5ML (2%) SYRINGE 5ML ONE (14:27)
[2023-10-19] MEDS ORDERED: PROPOFOL 10 MG/ML 20ML VIAL IV ONE (14:27)
[2023-10-19] MEDS ORDERED: ROCURONIUM BROMIDE 10MG/1ML 5ML VL ONE ×2 (14:27→14:52)
[2023-10-19] MEDS ORDERED: SUCCINYLCHOLINE CHLORIDE 20 MG/ML 10 ML VIAL ONE (14:29)
[2023-10-19] MEDS ORDERED: DEXAMETHASONE SOD PHOSPHATE 10MG/ML 1ML VIAL ONE (14:45)
[2023-10-19] MEDS ORDERED: ONDANSETRON 4MG INJ ONE (14:45)
[2023-10-19] MEDS: BUPIvacaine/PF 0.5% 30ML VIAL ONE (14:48)
[2023-10-19] MEDS ORDERED: ALBUMIN (HUMAN) 5% 500 ML IV ONE (15:00)
[2023-10-19] MEDS: SUGAMMADEX SODIUM 200 MG/2 ML VIAL IV ONE (15:05)
[2023-10-19] MEDS: MORPHINE 4 MG SYG ONE ×2 (17:25→17:32)
[2023-10-19] MEDS: PROPOFOL 1000 MG/100 ML 100 ML IV ONE (17:37)
[2023-10-19] MEDS: ZOSYN 3.375GM+NS 50ML 50 ML ONE (17:40)
[2023-10-19] MEDS: ONDANSETRON 4MG INJ ONE (18:11)
[2023-10-19] MEDS: FAMOTIDINE 20MG VIAL IV ONE (20:00)
[2023-10-19] MEDS: HYDROMORPHONE 1 MG INJ IVP SCH (21:21)
[2023-10-20] VITALS (7 sets, daily range): BP systolic 118–164; BP diastolic 76–95; PULSE 69–94; RESP 16–19; O2SAT 98
[2023-10-20] MEDS: HYDROMORPHONE 0.5 MG SYG (0.5MG/0.5ML) IVP ONE (04:13)
[2023-10-20] MEDS: POTASSIUM CHLORIDE 10% ELIXIR 20 MEQ/15 ML UDCUP PO PRN (10:36)
[2023-10-20 10:41] LABS: BASOPHILS # (AUTO) 0.08 K/uL (0.00-0.20); BASOPHILS % (AUTO) 0.3 % (0.0-5.0); EOSINOPHILS # (AUTO) 0.14 K/uL (0.00-0.70); EOSINOPHILS % (AUTO) 0.5 % (0.0-8.0); HEMATOCRIT 26.4 % (36-48); IMMATURE GRANULOCYTE ABSOLUTE 0.69 K/uL (0-1); LYMPHOCYTES # (AUTO) 1.4 K/uL (1.0-4.8); LYMPHOCYTES % (AUTO) 5.2 % (21.0-51.0); MEAN CORPUSCULAR HEMOGLOBIN 30.2 pg (27.0-33.0); MEAN CORPUSCULAR VOLUME 91.7 fL (79-99); MONOCYTES % (AUTO) 3.6 % (3.0-13.0); NEUTROPHILS % (AUTO) 87.9 % (40.0-77.0); NUCLEATED RED BLOOD CELLS 0.1 % (0.0-0.19); PLATELET COUNT (AUTO) 513 K/uL (130-400); RED BLOOD CELL COUNT(AUTO) 2.88 MIL/uL (4.00-5.50); RED CELL DISTRIBUTION WIDTH 14.9 % (11.0-15.5); WHITE BLOOD COUNT (AUTO) 27.3 K/uL (4.8-10.8)
[2023-10-20 12:13] LABS: CREATININE 0.9 mg/dL (0.5-1.0); POTASSIUM 3.4 mmol/L (3.5-5.1)
[2023-10-20] MEDS: KETOROLAC 30MG VIAL (30MG/ML) IM PRN (15:25)
[2023-10-20] MEDS: MORPHINE 4 MG SYG IVP PRN (19:19)
[2023-10-20] MEDS: METOCLOPRAMIDE 10 MG/2 ML VIAL IVP SCH (21:59)
[2023-10-21] VITALS: BP 140/86; PULSE 69; RESP 17
[2023-10-21 04:00] VITALS: BP 149/95; PULSE 68; RESP 18
[2023-10-21] MEDS: KETOROLAC 30MG VIAL (30MG/ML) IVP PRN (04:13)
[2023-10-21 04:53] LABS: CREATININE 0.8 mg/dL (0.5-1.0)
[2023-10-21 08:00] VITALS: BP 158/93; PULSE 65; RESP 17; O2SAT 97
[2023-10-21 11:19] LABS: BASOPHILS # (AUTO) 0.07 K/uL (0.00-0.20); BASOPHILS % (AUTO) 0.3 % (0.0-5.0); EOSINOPHILS # (AUTO) 0.98 K/uL (0.00-0.70); EOSINOPHILS % (AUTO) 3.5 % (0.0-8.0); HEMATOCRIT 25.4 % (36-48); IMMATURE GRANULOCYTE ABSOLUTE 1.16 K/uL (0-1); LYMPHOCYTES # (AUTO) 1.7 K/uL (1.0-4.8); LYMPHOCYTES % (AUTO) 6.2 % (21.0-51.0); MEAN CORPUSCULAR HEMOGLOBIN 29.9 pg (27.0-33.0); MEAN CORPUSCULAR HGB CONC 31.1 g/dL (32.0-36.0); MEAN CORPUSCULAR VOLUME 96.2 fL (79-99); MONOCYTES % (AUTO) 3.6 % (3.0-13.0); NEUTROPHILS # (AUTO) 22.8 K/uL (1.8-7.7); NEUTROPHILS % (AUTO) 82.2 % (40.0-77.0); NUCLEATED RED BLOOD CELLS 0.1 % (0.0-0.19); PLATELET COUNT (AUTO) 506 K/uL (130-400); RED BLOOD CELL COUNT(AUTO) 2.64 MIL/uL (4.00-5.50); RED CELL DISTRIBUTION WIDTH 15.4 % (11.0-15.5); WHITE BLOOD COUNT (AUTO) 27.7 K/uL (4.8-10.8)
[2023-10-21 12:00] VITALS: BP 133/72; PULSE 80; RESP 17
[2023-10-21] MEDS ORDERED: VANCOMYCIN PROTOCOL PER PHARMACY IV SCH (14:30)
[2023-10-21] MEDS: VANCOMYCIN 1.5 GM/250 ML BAG 250 ML IV ONE (15:23)
[2023-10-21 16:00] VITALS: BP 143/89; PULSE 65; RESP 17
[2023-10-21 20:00] VITALS: BP 143/89; PULSE 73; RESP 18
[2023-10-21] MEDS: VANCOMYCIN 750MG VIAL IVPB SCH (22:43)
[2023-10-22] VITALS (8 sets, daily range): BP systolic 134–152; BP diastolic 79–97; PULSE 64–84; RESP 16–20; O2SAT 100
[2023-10-22 03:48] LABS: CREATININE 0.8 mg/dL (0.5-1.0); POTASSIUM 3.5 mmol/L (3.5-5.1)
[2023-10-22] MEDS: KCL 20 MEQ ERTAB PO PRN (04:13)
[2023-10-22 11:38] LABS: HEMATOCRIT 26.1 % (36-48); MEAN CORPUSCULAR HEMOGLOBIN 30.5 pg (27.0-33.0); MEAN CORPUSCULAR HGB CONC 32.6 g/dL (32.0-36.0); MEAN CORPUSCULAR VOLUME 93.5 fL (79-99); NUCLEATED RED BLOOD CELLS 0.2 % (0.0-0.19); RED BLOOD CELL COUNT(AUTO) 2.79 MIL/uL (4.00-5.50); RED CELL DISTRIBUTION WIDTH 14.6 % (11.0-15.5); WHITE BLOOD COUNT (AUTO) 17.5 K/uL (4.8-10.8)
[2023-10-22 11:45] LABS: CREATININE 0.8 mg/dL (0.5-1.0); POTASSIUM 3.2 mmol/L (3.5-5.1)
[2023-10-23 04:00] VITALS: BP 152/42; PULSE 77; RESP 19
[2023-10-23 04:21] LABS: MEAN CORPUSCULAR HEMOGLOBIN 29.9 pg (27.0-33.0); MEAN CORPUSCULAR HGB CONC 33.2 g/dL (32.0-36.0); MEAN CORPUSCULAR VOLUME 89.9 fL (79-99); NUCLEATED RED BLOOD CELLS 0.6 % (0.0-0.19); RED BLOOD CELL COUNT(AUTO) 2.78 MIL/uL (4.00-5.50); RED CELL DISTRIBUTION WIDTH 14.2 % (11.0-15.5)
[2023-10-23 04:40] LABS: CREATININE 0.8 mg/dL (0.5-1.0); POTASSIUM 3.3 mmol/L (3.5-5.1)
[2023-10-23 07:00] VITALS: BP 146/81; PULSE 83; RESP 20
[2023-10-23 08:00] VITALS: O2SAT 96
[2023-10-23] MEDS: ZOSYN 3.375GM +NS 50ML IVPB SCH (08:21)
[2023-10-23 11:46] VITALS: BP 135/78; PULSE 89; RESP 20
[2023-10-23 14:00] VITALS: BP 142/80; PULSE 87; RESP 20
[2023-10-23 20:00] VITALS: BP 141/81; PULSE 81; RESP 19
[2023-10-24] VITALS (7 sets, daily range): BP systolic 135–146; BP diastolic 82–87; PULSE 78–89; RESP 18–19; O2SAT 99
[2023-10-24 06:29] LABS: HEMATOCRIT 25.5 % (36-48); MEAN CORPUSCULAR HEMOGLOBIN 30.4 pg (27.0-33.0); MEAN CORPUSCULAR HGB CONC 32.9 g/dL (32.0-36.0); MEAN CORPUSCULAR VOLUME 92.4 fL (79-99); NUCLEATED RED BLOOD CELLS 0.3 % (0.0-0.19); RED BLOOD CELL COUNT(AUTO) 2.76 MIL/uL (4.00-5.50); RED CELL DISTRIBUTION WIDTH 14.3 % (11.0-15.5); WHITE BLOOD COUNT (AUTO) 20.9 K/uL (4.8-10.8)
[2023-10-24 06:39] LABS: CREATININE 0.7 mg/dL (0.5-1.0); POTASSIUM 3.5 mmol/L (3.5-5.1)
[2023-10-24] MEDS: HYDROCODONE/IBUPROFEN 7.5/200 MG TAB PO PRN (16:21)
[2023-10-25] VITALS (7 sets, daily range): BP systolic 133–148; BP diastolic 82–96; PULSE 83–103; RESP 18; O2SAT 99
[2023-10-25 04:38] LABS: HEMATOCRIT 28.6 % (36-48); MEAN CORPUSCULAR HEMOGLOBIN 29.9 pg (27.0-33.0); MEAN CORPUSCULAR HGB CONC 32.5 g/dL (32.0-36.0); NUCLEATED RED BLOOD CELLS 0.1 % (0.0-0.19); RED BLOOD CELL COUNT(AUTO) 3.11 MIL/uL (4.00-5.50); RED CELL DISTRIBUTION WIDTH 14.6 % (11.0-15.5); WHITE BLOOD COUNT (AUTO) 23.2 K/uL (4.8-10.8)
[2023-10-25 04:48] LABS: CREATININE 0.8 mg/dL (0.5-1.0); POTASSIUM 4.2 mmol/L (3.5-5.1)
[2023-10-25] MEDS: FLUCONAZOLE 200 MG/NS 100 ML 100 ML IV SCH (09:33)
[2023-10-25] MEDS: LACTOBACILLUS RHAMNOSUS GG 1 EACH CAP.SPRINK PO SCH (13:09)
[2023-10-25] MEDS ORDERED: IOHEXOL-350 75 ML VIAL IV ONE (15:49)
[2023-10-25] MEDS: VANCOMYCIN 750MG VIAL IVPB SCH (23:29)
[2023-10-26] VITALS (9 sets, daily range): BP systolic 126–160; BP diastolic 76–98; PULSE 82–101; RESP 16–18; O2SAT 96–99
[2023-10-26] MEDS: KETOROLAC 30MG VIAL (30MG/ML) ONE (03:50)
[2023-10-26 04:34] LABS: HEMATOCRIT 29.7 % (36-48); MEAN CORPUSCULAR HEMOGLOBIN 29.5 pg (27.0-33.0); MEAN CORPUSCULAR HGB CONC 32.3 g/dL (32.0-36.0); MEAN CORPUSCULAR VOLUME 91.4 fL (79-99); RED BLOOD CELL COUNT(AUTO) 3.25 MIL/uL (4.00-5.50); RED CELL DISTRIBUTION WIDTH 14.5 % (11.0-15.5); WHITE BLOOD COUNT (AUTO) 27.2 K/uL (4.8-10.8)
[2023-10-26 04:50] LABS: CREATININE 1.1 mg/dL (0.5-1.0); POTASSIUM 3.6 mmol/L (3.5-5.1)
[2023-10-26] MEDS ORDERED: IOHEXOL-350 75 ML VIAL IV ONE (11:19)
[2023-10-27] VITALS (8 sets, daily range): BP systolic 121–144; BP diastolic 65–93; PULSE 72–101; RESP 16–18; O2SAT 96–97
[2023-10-27 04:28] LABS: HEMATOCRIT 25.6 % (36-48); MEAN CORPUSCULAR HEMOGLOBIN 29.5 pg (27.0-33.0); MEAN CORPUSCULAR HGB CONC 31.6 g/dL (32.0-36.0); MEAN CORPUSCULAR VOLUME 93.1 fL (79-99); RED BLOOD CELL COUNT(AUTO) 2.75 MIL/uL (4.00-5.50); RED CELL DISTRIBUTION WIDTH 14.6 % (11.0-15.5); WHITE BLOOD COUNT (AUTO) 21.4 K/uL (4.8-10.8)
[2023-10-27 04:41] LABS: POTASSIUM 4.2 mmol/L (3.5-5.1)
[2023-10-27] MEDS: KETOROLAC 30MG VIAL (30MG/ML) IVP PRN (09:23)
[2023-10-28] VITALS: BP_SYST 120; BP_SYST 121; BP_DIAS 62; BP_DIAS 74; PULSE 72; PULSE 73; RESP 16
[2023-10-28 04:53] LABS: HEMATOCRIT 22.7 % (36-48); MEAN CORPUSCULAR HEMOGLOBIN 29.8 pg (27.0-33.0); MEAN CORPUSCULAR HGB CONC 32.2 g/dL (32.0-36.0); MEAN CORPUSCULAR VOLUME 92.7 fL (79-99); RED BLOOD CELL COUNT(AUTO) 2.45 MIL/uL (4.00-5.50); RED CELL DISTRIBUTION WIDTH 14.6 % (11.0-15.5); WHITE BLOOD COUNT (AUTO) 12.6 K/uL (4.8-10.8)
[2023-10-28 04:59] LABS: CREATININE 1.2 mg/dL (0.5-1.0); POTASSIUM 3.6 mmol/L (3.5-5.1)
[2023-10-28 08:00] VITALS: BP 127/80; PULSE 72; RESP 17
[2023-10-28] MEDS ORDERED: ACET-2079 PO (11:15)
[2023-10-28 11:26] VITALS: O2SAT 96
[2023-10-28 12:00] VITALS: BP 128/79; PULSE 74; RESP 16
== END 2023-10-28 17:00 | disposition home or self-care (01) | DRG 853 ==
LOC: EDH 02:53 → EDHIP 06:42 → 4DH 11:51 → 2CH 17:37 → 4BH 10-20 00:22
PROVIDERS: ADMIT Hospitalist; ATTEND Hospitalist
PROC: 0W9G3ZZ Drainage of Peritoneal Cavity, Percutaneous Approach (ICD-10-PCS; 2023-10-19)
PROC: 5A1935Z Respiratory Ventilation, Less than 24 Consecutive Hours (ICD-10-PCS; 2023-10-19)
PROC: 0BH17EZ Insertion of Endotracheal Airway into Trachea, Via Natural or Artificial Opening (ICD-10-PCS; 2023-10-19)
PROC: 5A09357 Assistance with Respiratory Ventilation, Less than 24 Consecutive Hours, Continuous Positive Airway Pressure (ICD-10-PCS; 2023-10-19)
PROC: 0WCG0ZZ Extirpation of Matter from Peritoneal Cavity, Open Approach (ICD-10-PCS; principal; 2023-10-19 14:25)
DX: A41.9 Sepsis, unspecified organism (principal); K65.1 Peritoneal abscess; L02.211 Cutaneous abscess of abdominal wall; N17.9 Acute kidney failure, unspecified; K56.609 Unspecified intestinal obstruction, unspecified as to partial versus complete obstruction; N13.2 Hydronephrosis with renal and ureteral calculous obstruction; T79.7XXA Traumatic subcutaneous emphysema, initial encounter; E87.6 Hypokalemia; B96.20 Unspecified Escherichia coli [E. coli] as the cause of diseases classified elsewhere; N89.8 Other specified noninflammatory disorders of vagina; N70.93 Salpingitis and oophoritis, unspecified; F41.9 Anxiety disorder, unspecified; F14.10 Cocaine abuse, uncomplicated; I10 Essential (primary) hypertension; Z87.442 Personal history of urinary calculi; Z90.49 Acquired absence of other specified parts of digestive tract; Z90.710 Acquired absence of both cervix and uterus; Z98.891 History of uterine scar from previous surgery
CPT/HCPCS: 36415; 74177; 74178; 75989; 77012; 80048; 80053; 80202; 80305; 81001; 81025; 83605; 83690; 84145; 85025; 85027; 85610; 85651; 85730; 86140; 87040; 87070; 87071; 87076; 87086; 87186; 87205; 88300; 93005; 94002; 99152; 99153; A4344; G0378; J0330; J0696; J1100; J1170; J1450; J1885; J2001; J2250; J2270; J2405; J2543; J2704; J2765; J3010; J3490; J7120; P9045; Q9967; A4222; A4223; A4649; A4663; A6204; C1729; C1769; C1894; G0500; G8980-CI; G8983-CI; J0665; J3370